=== PATIENT | male | born 1935 | race Caucasian/White ===

== ENCOUNTER 2017-04-05 18:38 | Emergency (ER) | payer MEDICARE ==
[~2017-04-05] VITALS: Ht 172.7 cm; Wt 72.7 kg
[~2017-04-05 18:38] MED LIST: CARB1TAB14 PO; CARB1TAB37 PO; CHOL200025 PO; CYAN500 PO; DONE10TA42 PO; HYOS0.1218 PO; KLO5T PO; LEFL20TA18 PO; LEVO500T79 PO; SERT50TA9 PO; TRAZ-115 PO
[2017-04-05 18:48] VITALS: BP 156/87; PULSE 85; RESP 16; O2SAT 97
--- NOTE | 2017-04-05 18:59 | ED.REPORT ---
HPI-Trauma Minor / Fall Date of Service April 05, 2017 ED Provider: Dr. Osei 81 y/o male with a hx of Parkinson's presents to the ED via EMS complaining of left shoulder pain, onset just prior to arrival. As per the the pt was holding the chair to steady himself when he fell over. She reports this was the first time the pt fell and was unable to get up on his own. He denies hitting his head and LOC. Nursing Notes Stated Complaint: FALL Chief Complaint: Extremity Trauma Nursing Notes Reviewed: Yes Allergies: Coded Allergies: No Known Allergies (Verified Allergy, Unknown, 04/05/17) Scheduled Carbidopa/Levodopa 25-100 mg (Carbidopa/Levodopa 25-100 mg) 1 Each Tablet 1 EACH PO TIDWM Carbidopa/Levodopa ER 50-200 mg (Carbidopa/Levodopa ER 50-200 mg) 1 Each Tablet 1 EACH PO HS Cholecalciferol (Vitamin D3) (Vitamin D3) 2,000 Unit Tablet 4,000 UNIT PO QAM Clonazepam (Clonazepam) 0.5 Mg Tablet 0.25 MG PO HS Cyanocobalamin (Vitamin B12) 500 Mcg Tablet 1,000 MCG PO DAILY Donepezil (Donepezil) 10 Mg Tablet 10 MG PO HS Leflunomide (Leflunomide) 20 Mg Tablet 20 MG PO QAM Levofloxacin (Levofloxacin) 500 Mg Tablet 500 MG PO DAILY Sertraline HCl (Sertraline) 50 Mg Tablet 75 MG PO HS Trazodone (Trazodone) 50 Mg Tablet 50 MG PO HS Scheduled PRN Hyoscyamine SL (Hyoscyamine SL) 0.125 Mg Subl 0.125 MG PO q4 hours PRN PRN drooling General Time Seen by MD: 18:59 Chief Complaint Fall Hx Obtained From: Patient Arrived By: Ambulance Onset Occurred: Just prior to arrival Symptom Duration: Since onset Location: Shoulder left Quality: Painful Severity: Current: Moderate Severity: Maximum: Moderate Recent Healthcare: Recent doctor visit Similar Sx Previous: No Past Medical History Past Medical History Parkinson's disease Past Surgical History none reported Smoking History Never Smoker Social History Alcohol Use: Denies alcohol use Drug Use: Denies drug use Other Social History: Good social support, Ambulatory Status Walker Review of Systems Musculoskeletal: Reports: Joint pain (Left shoulder) Neurologic: Denies: Change LOC, Headache Complete sys rev & neg: except as marked. Physical Exam Initial Vital Signs Vital Signs (First) Date Time Temp Pulse Resp B/P Pulse Ox O2 Delivery O2 Flow Rate FiO2 04/05/17 18:48 36.4 85 16 156/87 97 Room Air Initial VS: Reviewed Head / Eyes: Atraumatic, Normocephalic Respiratory: Breath sounds normal, Clear to auscultation, No respiratory distress Cardiovascular: Regular rate & rhythm, Heart sounds normal, Intact distal pulses Abdomen / GI: Soft, Non-tender Extremities: Vascular intact, Neuro intact, No tenderness Skin: Warm, Dry, No cyanosis Neurologic: Alert, Oriented, Nonfocal General/Constitutional: Awake, Alert, Cooperative Neck: Atraumatic, Full range of motion Upper Extremity / MS: No deformity, Neurologic intact, Vascular intact Scapula and left shoulder tender. Lower Extremity / Pelvis / MS: Full range of motion, No deformity, Neurologic intact, Vascular intact Interpretation & Diagnostics X-Ray Interpretation Xray Interpretation: IMPRESSION: 1. Nondisplaced left scapular fractures. No definite involvement of the glenohumeral joint. 2. Nondisplaced left rib fractures. No definite pneumothorax. Dictated by: Diego Davidson M.D. on 04/05/2017 at 19:35 Approved by: Diego Davidson M.D. on 04/05/2017 at 19:41 X-Ray Ordered: Shoulder left Re-Eval/Medical Decision Med Decision/Clinical Course This very pleasant 81-year-old male who suffers with severe Parkinson's. He was getting himself up when the chair he was using to support himself tumbled over. He landed on his left shoulder. He did not hit his head or neck. He did not have loss consciousness. He was found to have nondisplaced rib fractures and a scapular body fracture that does not involve the joint. He was medicated he felt better. He is neurovascularly intact. No signs of systemic illness. He was ready to be discharged home after pain medicine. We will immobilize his arm in a sling however, needed to study himself so therefore we did not put him in the actual full on immobilizer. I will refer him to orthopedics for definitive care. Routine opiate warnings were given. Source of Hx: Old records Re-Evaluation/Progress : Time of Eval: 20:11 Re-Evaluation/Progress Note: Rechecked pt. Discussed lab, imaging results and diagnosis. Informed the pt of the plan to discharge. Pt understands and agrees with plan. F/U instructions and RTER warning given. All questions addressed. Counseled Regarding: Diagnosis, Lab results, Need for follow-up, When/why to return to ED Discharge & Departure Impression: Primary Impression: Scapular fracture Encounter type: initial encounter Scapula location: body Fracture type: closed Fracture alignment: nondisplaced Laterality: left Qualified Code: S42.115A - Nondisplaced fracture of body of scapula, left shoulder, initial encounter for closed fracture Additional Impression: Rib fractures Encounter type: initial encounter Rib fracture type: multiple ribs Fracture type: closed Laterality: left Qualified Code: S22.42XA - Multiple fractures of ribs, left side, initial encounter for closed fracture Disposition: Home Patient Instructions: Rib Fracture (ED), Scapular Fracture (ED) Additional Instructions: The x-rays show nondisplaced rib and scapular body fracture. Use the sling when it is safe for you to do so. Take 1-2 [place] every 6 hours needed for severe pain. Do not take this with any sedating medications. Do not drive or drink alcohol or consume acetaminophen while taking the [place]. Take a stool softener such as Colace twice daily to prevent constipation from the [place]vue. Follow up with the referral orthopedic surgeon. Call tomorrow to set up a follow-up appointment. Return if any problems or any new or worsening symptoms. Referrals: Harmeet Olivia MD (PCP) Baldo Au Todd P DO April 05, 2017 18:59 Ines French April 05, 2017 19:47
--- NOTE | 2017-04-05 19:48 | DRSVH ---
PROCEDURE: X-RAY LEFT SHOULDER, MINIMUM TWO VIEWS ([id number]) INDICATIONS: fall , shoulder pain TECHNIQUE: 4 views of the shoulder were acquired. COMPARISON: [facility], , SHOULDER MIN 2VW (LT), 05/28/2013, 11:10. Chest radiograph fr om 06/28/2016. FINDINGS: Bones: Osteopenia. Ill-defined linear lucencies project over the scapula. Normal shoulder alignment. Nondisplaced left rib fractures. Soft tissues: No suspicious soft tissue calcifications. IMPRESSION: 1. Nondisplaced left scapular fractures. No definite involvement of the glenohumeral joint. 2. Nondisplaced left rib fractures. No definite pneumothorax. Dictated by: Diego Davidson M.D. on 04/05/2017 at 19:35 Approved by: Diego Davidson M.D. on 04/05/2017 at 19:41
[2017-04-05] MEDS ORDERED: HYDROcodone-APAP 5-325 mg Tablet PO ONE (19:50)
[2017-04-05] MEDS ORDERED: _HYDROcodone/APAP 5-325 mg Tablet PO PRN (20:55)
[2017-04-05 21:37] VITALS: BP 148/77; PULSE 88; O2SAT 95
== END 2017-04-05 21:37 | disposition home or self-care (01) ==
LOC: SED 18:38 → EDBD 18:38 → SED 21:37
DX: S42.115A Nondisplaced fracture of body of scapula, left shoulder, initial encounter for closed fracture (principal); S22.42XA Multiple fractures of ribs, left side, initial encounter for closed fracture; W18.39XA Other fall on same level, initial encounter; Y92.009 Unspecified place in unspecified non-institutional (private) residence as the place of occurrence of the external cause; Y93.89 Activity, other specified; Y99.8 Other external cause status; G20 Parkinson's disease; Z79.899 Other long term (current) drug therapy